=== PATIENT | male | born 1950 | race Caucasian/White ===

== ENCOUNTER 2018-05-02 07:21 | Day surgery (SDC) | payer MEDICARE, OTHER ==
[~2018-05-02 07:21] MED LIST: KETOROLAC TROMETHAMINE 0.45% 4 DROP/0.4 ML DROPERETTE OS PRN
[2018-05-02] MEDS: CYCLOPENTOLATE 0.2%/PHENYLEPHRINE 1% OPH SOLN 2 ML OS PRN ×3 (08:14→08:39)
[2018-05-02] MEDS: TROPICAMIDE 1% OPH SOLN 3 ML OS PRN ×3 (08:14→08:39)
[2018-05-02] MEDS: BESIFLOXACIN HCL 0.6% OPH SUSP 5 ML BOTTLE OS PRN ×4 (08:14→09:13)
[2018-05-02] MEDS: TETRACAINE HCL 0.5% OPH SOLN 4 ML OS PRN ×4 (08:14→08:46)
[2018-05-02] MEDS ORDERED: MIDAZOLAM 2 MG/2 ML INJ ONE (08:44)
[2018-05-02] MEDS: EPINEPHRINE INJ/PF 1 MG/1 ML AMPULE ONE ×2 (08:58)
[2018-05-02] MEDS: CHONDR SU A NA/HYALUR INTRAOC KIT (SURGICARE) ONE ×2 (08:58)
[2018-05-02] MEDS: LIDOCAINE 1% INJ-PF (10 MG/ML) 30 ML SDV ONE ×2 (08:58)
--- NOTE | 2018-05-03 23:32 | [facility] OPERATIVE REPORT E ---
[facility] Operative Report NAME: GURPREET CHENEY AGE: 67Y DATE OF SURGERY: 05/02/2018 ROOM: PREOPERATIVE DIAGNOSIS: CATARACT, LEFT EYE. POSTOPERATIVE DIAGNOSIS: CATARACT, LEFT EYE. OPERATION: Cataract extraction with insertion of an IOL of the left eye. SURGEON: YSABEL BONE M.D. ANESTHESIA: Topical. PROCEDURE: After obtaining appropriate consent, the patient's left eye was prepped and draped in sterile fashion as well as the surgeon in a sterile manner and cataract surgery was started. First a paracentesis blade was used to make a side-port incision. Viscoelastic was used to inflate the anterior chamber. Next a 2.4 mm incision was made with a 2.4 mm blade, clear corneal temporally. A continuous capsulorrhexis was made using a cystotome and Utrata forceps. Following this hydrodissection was carried out to make the lens fully loose and mobile and it was rotated 90 degrees. Following this, a nirloa-gfp-kabohel technique was used to phacoemulsify the lens with a CDE of 7.68. The remaining cortex was removed with irrigation/aspiration. Provisc was instilled into the capsular bag to inflate the bag. A SN60WF, 21.0 diopter lens was placed. The remaining viscoelastic material was removed with irrigation/aspiration. Following this, the incision was found to be watertight. Besivance was instilled into the eye and a protective shield was placed over the eye. The patient returned to the postoperative recovery in stable condition. DICTATING PHYSICIAN: YSABEL BONE M.D. [id number] Y#: [id number] ID: [id number] JOB#: [id number] ACCT: [id number] cc:YSABEL BONE M.D. >
--- NOTE | 2018-05-03 23:33 | [facility] DISCHARGE SUMMARY E ---
[facility] Discharge Summary NAME: GURPREET CHENEY AGE: 67Y ADMITTED: 05/02/2018 DISCHARGED: 05/02/2018 This is a 67-year-old patient who underwent cataract extraction of the left eye. DIAGNOSIS: Cataract left eye. He underwent surgery because he was having trouble driving at night and having difficulty watching TV and reading. He is to be on a regular diet. No bending at the waist, no heavy lifting. He should use his Besivance, Prolensa, and Durezol at 3:00 p.m. and 8:00 p.m., and sleep with a rigid shield. I will see him for his 1-day postoperative tomorrow. DICTATING PHYSICIAN: YSABEL BONE M.D. [id number] [id number] PHY#: [id number] ID: [id number] JOB#: [id number] ACCT: [id number] cc:YSABEL BONE M.D. >
== END 2018-05-02 09:58 | disposition home or self-care (01) ==
LOC: SC 07:21
PROVIDERS: ATTEND Internal Medicine
DX: H25.812 Combined forms of age-related cataract, left eye (principal); Z96.1 Presence of intraocular lens; E78.00 Pure hypercholesterolemia, unspecified; E03.9 Hypothyroidism, unspecified; I10 Essential (primary) hypertension; K21.9 Gastro-esophageal reflux disease without esophagitis; M19.90 Unspecified osteoarthritis, unspecified site; Z79.82 Long term (current) use of aspirin; Z79.899 Other long term (current) drug therapy
CPT/HCPCS: 66984; V2632; J2250; J3490 ×3; A9270; J0171; 142

== ENCOUNTER → 2019-12-19 | Outpatient (CLI) | payer MEDICARE, OTHER | LOC: OD 09:14 → EDSTATUS 12-25 11:30 | PROVIDERS: ATTEND Internal Medicine | DX: U07.1 COVID-19 (principal) | CPT/HCPCS: U0003; C9803; 87635 ==

== ENCOUNTER 2020-02-05 10:19 | Day surgery (SDC) | payer MEDICARE, OTHER ==
[~2020-02-05 10:19] MED LIST changes: +FENTANYL CITRATE INJ/PF 100 MCG/2 ML AMPUL ONE; -KETOROLAC TROMETHAMINE 0.45% 4 DROP/0.4 ML DROPERETTE OS PRN; +MIDAZOLAM 2 MG/2 ML INJ ONE
[2020-02-05] MEDS ORDERED: LIDOCAINE 2% INJ (20 MG/ML) 20 ML MDV ONE (10:24)
[2020-02-05] MEDS: POVIDONE-IODINE 5% OPH PREP SOLN 30 ML ONE ×2 (11:55)
[2020-02-05] MEDS: TETRACAINE HCL 0.5% OPH SOLN 4 ML ONE ×2 (11:55)
[2020-02-05] MEDS: BALANCED SALT IRRIG SOLN COMB2 15 ML BOTTLE ONE ×2 (12:02)
[2020-02-05] MEDS: THROMBIN (BOVINE) TOPICAL 5000 UNIT VIAL ONE ×2 (12:02)
[2020-02-05] MEDS: BUPIVACAINE HCL 0.75% INJ/PF (7.5 MG/1 ML) 10 ML SDV ONE ×2 (12:02)
[2020-02-05] MEDS: LIDOCAINE 2%/EPINEPHRINE INJ 20 ML VIAL ONE ×2 (12:02)
[2020-02-05] MEDS ORDERED: PROPOFOL INJ 200 MG/20 ML VIAL IV ONE (12:29)
[2020-02-05] MEDS: NEO/POLYMYX B SULF/DEXAMETH OPH OINTMENT 3.5 GM ONE ×2 (12:54)
--- NOTE | 2020-02-05 13:31 | Operative Report ---
Operative Report-[facility] Operative Report: Date of surgery: 02/05/2020 Surgeon: Reinier Yanez MD Diagnosis: Bilateral upper lid dermatochalasis Operative diagnosis: Same Surgery: Bilateral upper lid blepharoplasty Blood loss less than 2 cc Anesthesia is local injection of 2% lidocaine with MAC Complications: None Description of operative report: After the patient was prepped and draped in sterile fashion. The upper eyelids were marked to take away the appropriate amount of skin making sure not to remove excess skin to create lag. The skin was removed using 0.12 forceps and bleph scissors after the outlined area was incised with a 15 blade. Cautery was used to achieve hemostasis and a thrombin soaked sponge was applied to the area. It was repeated for both upper eyelids. Following this a 6-0 silk was used to go skin orbicularis skin to reform a eyelid crease it was 3 interrupted simple interrupted sutures. A running 6-0 nylon was then used to close the remaining skin. A maxitrol ointment was applied to the lids patient woke up in postop recovery in stable condition The reason for this procedure was the patient was having a severely restricted visual field and could not see the upper portion of his vision.
== END 2020-02-05 13:26 | disposition home or self-care (01) ==
LOC: SC 10:19
PROVIDERS: ATTEND Internal Medicine
DX: H02.831 Dermatochalasis of right upper eyelid (principal); H02.834 Dermatochalasis of left upper eyelid; H53.453 Other localized visual field defect, bilateral; Z03.818 Encounter for observation for suspected exposure to other biological agents ruled out; E78.00 Pure hypercholesterolemia, unspecified; E03.9 Hypothyroidism, unspecified; M19.90 Unspecified osteoarthritis, unspecified site; Z95.5 Presence of coronary angioplasty implant and graft; E11.9 Type 2 diabetes mellitus without complications; Z79.82 Long term (current) use of aspirin; Z79.899 Other long term (current) drug therapy; K21.9 Gastro-esophageal reflux disease without esophagitis; D64.9 Anemia, unspecified
CPT/HCPCS: 15823; U0003; J2250; J3490 ×6; J3010; A9270; J2704; C9803; 103; 87635